=== PATIENT | male | born 1985 | race Two or more races ===

== ENCOUNTER 2020-09-11 10:32 | Emergency (ER) | payer MEDICAID, OTHER ==
[~2020-09-11] VITALS: Ht 185.4 cm; Wt 77.1 kg
[2020-09-11 12:14] VITALS: BP 134/83
== END 2020-09-11 12:17 | disposition home or self-care (01) ==
LOC: ER 10:32
DX: S61.012A Laceration without foreign body of left thumb without damage to nail, initial encounter (principal); W26.8XXA Contact with other sharp object(s), not elsewhere classified, initial encounter; Y93.89 Activity, other specified; Y92.89 Other specified places as the place of occurrence of the external cause; Y99.8 Other external cause status
CPT/HCPCS: 12001